=== PATIENT | male | born 1935 | race Caucasian/White ===

== ENCOUNTER 2017-01-20 19:14 | Emergency (ER) | payer OTHER ==
[~2017-01-20] VITALS: Ht 170.2 cm; Wt 74.8 kg
[2017-01-20] MEDS ORDERED: SODIUM CHLORIDE 0.9% 1,000 ML IV ONE (19:32)
[2017-01-20] MEDS ORDERED: MORPHINE SULFATE 4 MG/ML SYRG IV ONE (19:45)
[2017-01-20] MEDS ORDERED: ONDANSETRON HCL 4 MG/2 ML VIAL IV ONE (19:45)
[2017-01-20 21:12] LABS: Albumin 3.5 g/dL (3.4-5.0); BUN/Creatinine Ratio 23.7; Basophils # (auto) 0.1 uL; Basophils % (auto) 0.6 % (0.0-2.0); Calcium 8.7 mg/dL (8.5-10.1); DEFINITIVE VIEW TRANSMISSION; Eosinophils # (auto) 0.1 uL; Eosinophils % (auto) 1.3 % (0.0-7.0); Hematocrit 30.2 % (41.0-53.0); Hemoglobin 10.1 g/dL (13.5-17.5); Lymphocytes # (auto) 2.3 uL; Lymphocytes % (auto) 21.3 % (10.0-50.0); Mean Corpuscular Hemoglobin 34.8 pg (28.0-32.0); Mean Corpuscular Hgb Conc. 33.5 g/dL (32.0-36.0); Mean Corpuscular Volume 103.9 fL (80.0-100.0); Mean Platelet Volume 7.9 fL (7.4-10.4); Monocytes # (auto) 0.9 uL; Monocytes % (auto) 8.5 % (0.0-12.0); Neutrophils # (auto) 7.5 uL; Neutrophils % (auto) 68.3 % (37.0-80.0); Platelet Count (auto) 442 10^3/uL (140-450); Potassium 3.9 mmol/L (3.5-5.1); Red Cell Distribution Width 16.4 % (11.6-16.0)
[2017-01-20 21:15] LABS: Bilirubin, Total 0.6 mg/dL (0.2-1.0)
[2017-01-20 22:27] LABS: Macrocytosis Slight; Platelet Estimate Adequate
[2017-01-21 00:35] VITALS: BP 130/91
== END 2017-01-21 01:05 | disposition home or self-care (01) ==
LOC: EDBD 19:14 → ER 19:29
DX: K57.30 Diverticulosis of large intestine without perforation or abscess without bleeding (principal); K40.90 Unilateral inguinal hernia, without obstruction or gangrene, not specified as recurrent; D64.9 Anemia, unspecified; I48.91 Unspecified atrial fibrillation; I10 Essential (primary) hypertension; E07.9 Disorder of thyroid, unspecified; Z98.890 Other specified postprocedural states
CPT/HCPCS: 36415; 74176; 80053; 83690; 85025; 96361; 96374; 96375; 99285; J2270; J2405; J7030

== ENCOUNTER → 2020-02-11 | Emergency (ER) | payer OTHER ==
[~2020-02-11] VITALS: Ht 170.2 cm; Wt 77.1 kg
[~2020-02-11] MED LIST: ACETAMINOPHEN 325 MG TAB PO ONE; MORPHINE SULF INJ 2 MG/ML SYRINGE 1ML IV ONE; ONDANSETRON HCL 4 MG/2 ML VIAL IV ONE; SODIUM CHLORIDE 0.9% 1,000 ML IV ONE
[2020-02-11 12:42] LABS: Basophils # (auto) 0.1 10 ^3/uL (0-0.2); Eosinophils # (auto) 0 10 ^3/uL (0-0.8); Eosinophils % (auto) 0.5 % (0.0-7.0); Lymphocytes # (auto) 0.5 10 ^3/uL (0.4-5.4); Monocytes # (auto) 0.5 10 ^3/uL (0-1.3); Neutrophils # (auto) 3.6 10 ^3/uL (1.6-8.6)
[2020-02-11 12:43] LABS: Basophils % (auto) 1.4 % (0.0-2.0); Hematocrit 23.3 % (41.0-53.0); Hemoglobin 8.1 g/dL (13.5-17.5); Lymphocytes % (auto) 10.9 % (10.0-50.0); Mean Corpuscular Hemoglobin 38.3 pg (28.0-32.0); Mean Corpuscular Volume 109.4 fL (80.0-100.0); Monocytes % (auto) 10.1 % (0.0-12.0); Neutrophils % (auto) 77.1 % (37.0-80.0); Platelet Count (auto) 230 10^3/uL (140-450); Red Blood Cells 2.13 10^6/uL (4.5-5.90); Red Cell Distribution Width 17.2 % (11.8-14.3); White Blood Cell 4.7 10^3/uL (4.4-10.8)
[2020-02-11 12:56] LABS: INR 3.44 (0.9-1.15); Partial Thromboplastin Time 38.1 sec (23.64-32.05)
[2020-02-11 13:04] LABS: Calcium 8.5 mg/dL (8.5-10.1); Potassium 3.7 mmol/L (3.5-5.1)
[2020-02-11 13:11] LABS: Albumin 3.5 g/dL (3.4-5.0); BUN/Creatinine Ratio 17.1; Bilirubin, Total 0.5 mg/dL (0.2-1.0); Magnesium 2.2 mg/dL (1.6-2.6); Total Protein 5.9 g/dL (6.4-8.2)
[2020-02-11 15:58] VITALS: BP 115/50
[2020-02-11 16:04] LABS: Urine Bacteria NONE SEEN /hpf (None Seen); Urine Blood Negative /uL (Negative); Urine Hyaline Cast FEW /lpf (0 - 2); Urine Mucus FEW (None Seen); Urine Specific Gravity 1.022 (1.001-1.035); Urine WBC 1 /hpf (0 - 3)
== END | disposition short-term general hospital (02) ==
LOC: EDUNIT# 11:39 → EDBD 11:40 → ER 11:40
DX: M48.061 Spinal stenosis, lumbar region without neurogenic claudication (principal); D50.9 Iron deficiency anemia, unspecified; R79.1 Abnormal coagulation profile; I10 Essential (primary) hypertension; S32.030D Wedge compression fracture of third lumbar vertebra, subsequent encounter for fracture with routine healing; X58.XXXD Exposure to other specified factors, subsequent encounter
CPT/HCPCS: 36415; 71045; 72131; 74176; 80053; 81001; 83735; 85025; 85610; 85730; 93005; 96374; 96375; 99285; J2270; J2405; J7030

== ENCOUNTER → 2020-09-14 | Emergency (ER) | payer OTHER ==
[~2020-09-14] VITALS: Ht 172.7 cm; Wt 65.8 kg
[~2020-09-14] MED LIST changes: -ACETAMINOPHEN 325 MG TAB PO ONE; -MORPHINE SULF INJ 2 MG/ML SYRINGE 1ML IV ONE; -ONDANSETRON HCL 4 MG/2 ML VIAL IV ONE
[2020-09-14 13:52] LABS: Hemoglobin 9.2 g/dL (13.5-17.5); Mean Corpuscular Volume 106.4 fL (80.0-100.0)
[2020-09-14 13:54] LABS: Mean Corpuscular Hemoglobin 36.2 pg (28.0-32.0); Platelet Count (auto) 350 10^3/uL (140-450); Red Blood Cells 2.53 10^6/uL (4.5-5.90); Red Cell Distribution Width 17.3 % (11.8-14.3); White Blood Cell 5.9 10^3/uL (4.4-10.8)
[2020-09-14 14:00] VITALS: BP 127/69
[2020-09-14 14:01] LABS: Blast Cells 0; Metamyelocytes % 0; Myelocytes % 0; Promyelocytes % 0; Reactive Lymphocytes 0
[2020-09-14 14:17] LABS: Albumin 3.6 g/dL (3.4-5.0); Anion Gap 5 (5-15); Blood Urea Nitrogen 16 mg/dL (7-18); Calcium 8.2 mg/dL (8.5-10.1); Carbon Dioxide 26 mmol/L (21-32); Chloride 107 mmol/L (98-107); Glucose 105 mg/dL (74-106); Sodium 138 mmol/L (136-145)
[2020-09-14 14:25] LABS: Alanine Aminotransferase 14 U/L (16-61); Alkaline Phosphatase 71 U/L (45-117); Aspartate Aminotransferase 8 U/L (15-37); Bilirubin, Total 1.5 mg/dL (0.2-1.0); GFR African American 105 mL/min; GFR Non-African American 87 mL/min; Total Protein 5.9 g/dL (6.4-8.2)
[2020-09-14 14:43] LABS: Band Neutrophils % (manual) 2; Basophils % (manual) 1 (0.0-2.0); Eosinophils % (manual) 1 (0-7); Lymphocytes % (manual) 13 (10.0-50.0); Monocytes % (manual) 10 (0-12)
[2020-09-14 16:46] LABS: Urine Bacteria FEW /hpf (None Seen); Urine Blood TRACE /uL (Negative); Urine Mucus FEW (None Seen); Urine Specific Gravity 1.019 (1.001-1.035); Urine WBC 694 /hpf (0 - 3); Urine WBC Clumps PRESENT /hpf (None Seen)
== END | disposition home or self-care (01) ==
LOC: EDUNIT# 12:26 → ER 12:40 → EDBD 12:40
DX: K52.9 Noninfective gastroenteritis and colitis, unspecified (principal); E86.0 Dehydration; N39.0 Urinary tract infection, site not specified; I10 Essential (primary) hypertension
CPT/HCPCS: 36415; 71045; 74176; 80053; 81001; 84484; 85007; 85027; 96360; 96361; 99285; J7030

== ENCOUNTER 2022-08-06 11:39 | Emergency (ER) | payer OTHER ==
[~2022-08-06] VITALS: Ht 162.6 cm; Wt 75.0 kg
[2022-08-06 23:31] VITALS: BP 136/60
== END 2022-08-06 22:04 | disposition short-term general hospital (02) ==
LOC: ER 11:39 → EDBD 11:39 → ER 22:04
DX: M25.551 Pain in right hip (principal); I10 Essential (primary) hypertension; I48.91 Unspecified atrial fibrillation; E03.9 Hypothyroidism, unspecified; Z20.822 Contact with and (suspected) exposure to COVID-19
CPT/HCPCS: 36415; 72131; 72192; 73502; 93005

== ENCOUNTER 2022-10-25 14:06 | Inpatient (IN) | payer OTHER ==
[~2022-10-25] VITALS: Ht 160 cm; Wt 69.3 kg
[2022-10-25] MEDS ORDERED: SODIUM CHLORIDE 0.9% 500 ML IV ONE (16:45)
[2022-10-25] MEDS ORDERED: METOCLOPRAMIDE HCL 5MG/ml INJ 2ml VIAL IV ONE (16:45)
[2022-10-25] MEDS ORDERED: DexAMETHasone SOD PHOS 10MG/1ML VIAL INJ IV ONE (16:45)
[2022-10-25] MEDS ORDERED: HYDROmorphone HCL 2 MG/ML VL/or syr IV ONE (16:45)
[2022-10-25] MEDS ORDERED: METOCLOPRAMIDE HCL 5MG/ml INJ 2ml VIAL IM ONE (18:00)
[2022-10-25] MEDS ORDERED: HYDROcodone-ACET 7.5/325MG TAB PO ONE (18:00)
[2022-10-25] MEDS ORDERED: DexAMETHasone SOD PHOS 4 MG/1ML SDV INJ IM ONE (18:00)
[2022-10-25 21:00] LABS: Hemoglobin 8.2 g/dL (13.5-17.5); White Blood Cell 11.4 10^3/uL (4.4-10.8)
[2022-10-25 21:03] LABS: Hematocrit 24.8 % (41.0-53.0); Mean Corpuscular Hemoglobin 37.1 pg (28.0-32.0); Mean Corpuscular Hgb Conc. 33.1 g/dL (32.0-36.0); Mean Corpuscular Volume 112.1 fL (80.0-100.0); Red Blood Cells 2.21 10^6/uL (4.5-5.90)
[2022-10-25 21:04] LABS: Red Cell Distribution Width 23.9 % (11.8-14.3)
[2022-10-25 21:06] LABS: Basophils % (manual) 0 (0.0-2.0); Blast Cells 0; Eosinophils % (manual) 0 (0-7); Metamyelocytes % 0; Myelocytes % 0; Promyelocytes % 0; Reactive Lymphocytes 0
[2022-10-25 21:47] LABS: Albumin 3.7 g/dL (3.4-5.0); BUN/Creatinine Ratio 18.2; Calcium 8.6 mg/dL (8.5-10.1); Potassium 4.8 mmol/L (3.5-5.1)
[2022-10-25 21:49] LABS: Bilirubin, Total 1.8 mg/dL (0.2-1.0); Total Protein 6.2 g/dL (6.4-8.2)
[2022-10-25 22:12] LABS: Band Neutrophils % (manual) 17; Lymphocytes % (manual) 13 (10.0-50.0); Monocytes % (manual) 9 (0-12)
[2022-10-25] MEDS ORDERED: DexAMETHasone SOD PHOS 4 MG/1ML SDV INJ ONE (23:04)
[2022-10-26 04:47] LABS: Urine Bacteria MANY /hpf (None Seen); Urine Blood Negative /uL (Negative); Urine Mucus FEW (None Seen); Urine Specific Gravity 1.021 (1.001-1.035); Urine WBC 147 /hpf (0 - 3); Urine WBC Clumps PRESENT /hpf (None Seen)
[2022-10-26] MEDS ORDERED: MORPHINE SULFATE INJ 2 MG/ml SYRG IV PRN (06:45)
[2022-10-26] MEDS ORDERED: ACETAMINOPHEN 325 MG TAB PO PRN (06:45)
[2022-10-26] MEDS ORDERED: TEMAZEPAM 15 MG CAP PO PRN (06:45)
[2022-10-26] MEDS ORDERED: ONDANSETRON HCL 4 MG/2 ML VIAL IV PRN (06:45)
[2022-10-26] MEDS: OXYCODONE W/ ACETAMINOPHEN 5/325MG TABLET PO PRN ×2 (08:45→20:33)
[2022-10-26] MEDS: METOPROLOL SUCCINATE XL 50 MG TAB PO SCH (10:00)
[2022-10-26] MEDS: FUROSEMIDE 20 MG TAB PO SCH (10:00)
[2022-10-26] MEDS: ENOXAPARIN SOD 40 MG/0.4 ML SYRINGE SC SCH (10:24)
[2022-10-26] MEDS: TAMSULOSIN HYDROCHLORIDE 0.4 MG CAP PO SCH (18:27)
[2022-10-27 06:18] LABS: Calcium 8.3 mg/dL (8.5-10.1); Potassium 4.1 mmol/L (3.5-5.1)
[2022-10-27 06:21] LABS: BUN/Creatinine Ratio 22.8
[2022-10-27] MEDS ORDERED: cefTRIAXone 1GM/50ML D5W 50 ML IV SCH (09:00)
[2022-10-27 09:30] VITALS: BP 118/62
[2022-10-27] MEDS: METOPROLOL SUCCINATE XL 50 MG TAB PO SCH (10:13)
[2022-10-27] MEDS: ENOXAPARIN SOD 40 MG/0.4 ML SYRINGE SC SCH (10:13)
[2022-10-27] MEDS: FUROSEMIDE 20 MG TAB PO SCH (10:14)
[2022-10-27 12:35] VITALS: BP 113/54
[2022-10-27 17:00] VITALS: BP 119/47
[2022-10-27 17:13] VITALS: BP 118/62
[2022-10-27] MEDS ORDERED: TAMS0.4C36 PO (17:33)
[2022-10-27] MEDS ORDERED: FUR20T PO (17:33)
[2022-10-27] MEDS ORDERED: DABI150C5 PO (17:33)
[2022-10-27] MEDS ORDERED: METO25TA5 PO (17:33)
[2022-10-27] MEDS ORDERED: FIN5T PO (17:33)
[2022-10-27] MEDS: TAMSULOSIN HYDROCHLORIDE 0.4 MG CAP PO SCH (17:51)
[2022-10-27] MEDS: OXYCODONE W/ ACETAMINOPHEN 5/325MG TABLET PO PRN (21:07)
[2022-10-27 22:00] VITALS: BP 115/49
[2022-10-28 01:07] VITALS: BP 115/49
== END 2022-10-28 02:41 | disposition short-term general hospital (02) | DRG 552 ==
LOC: ER 14:06 → EDBD 14:06 → OVERFLOW 10-26 06:50 → WEST WING 10-27 08:30
PROVIDERS: ADMIT Nurse Practitioner; ATTEND Internal Medicine Pulmonary Disease
DX: M54.16 Radiculopathy, lumbar region (principal); N39.0 Urinary tract infection, site not specified; G89.29 Other chronic pain; I10 Essential (primary) hypertension; I48.91 Unspecified atrial fibrillation; N40.0 Benign prostatic hyperplasia without lower urinary tract symptoms; Z96.641 Presence of right artificial hip joint; M25.551 Pain in right hip; Z20.822 Contact with and (suspected) exposure to COVID-19
CPT/HCPCS: 36415; 72100; 72170; 73502; 74176; 80048; 80053; 81001; 84484; 85007; 85027; 87086; 87426; 87804; 96372; G0378; J0696; J1100

== ENCOUNTER 2024-01-19 15:35 | Emergency (ER) | payer OTHER ==
[~2024-01-19] VITALS: Ht 175.3 cm; Wt 75.0 kg
[~2024-01-19 15:35] MED LIST changes: +DABI150C5 PO; +FIN5T PO; +FUR20T PO; +METO25TA5 PO; -SODIUM CHLORIDE 0.9% 1,000 ML IV ONE; +TAMS0.4C36 PO
[2024-01-19 20:30] VITALS: BP 111/51; PULSE 78; RESP 20; TEMP 98.2; O2SAT 98
[2024-01-19] MEDS: PANTOPRAZOLE 40 MG/10 ML VIAL INJ IV ONE (20:34)
[2024-01-19] MEDS: GLUCAGON EMERG KIT 1mg/1ml IV ONE (20:34)
[2024-01-19 20:54] LABS: Basophils # (auto) 0.2 10 ^3/uL (0-0.2); Eosinophils # (auto) 0.1 10 ^3/uL (0-0.8); Monocytes # (auto) 0.7 10 ^3/uL (0-1.3)
[2024-01-19 20:55] LABS: Basophils % (auto) 1.9 % (0.0-2.0); Eosinophils % (auto) 1.2 % (0.0-7.0); Hemoglobin 9.5 g/dL (13.5-17.5); Lymphocytes # (auto) 1.6 10 ^3/uL (0.4-5.4); Lymphocytes % (auto) 20.3 % (10.0-50.0); Mean Corpuscular Hemoglobin 35.2 pg (28.0-32.0); Mean Corpuscular Hgb Conc. 32.7 g/dL (32.0-36.0); Mean Corpuscular Volume 107.7 fL (80.0-100.0); Monocytes % (auto) 8.8 % (0.0-12.0); Neutrophils # (auto) 5.4 10 ^3/uL (1.6-8.6); Neutrophils % (auto) 67.8 % (37.0-80.0); Nucleated Red Blood Cells % 0.2 %; Red Blood Cells 2.69 10^6/uL (4.5-5.90); White Blood Cell 7.9 10^3/uL (4.4-10.8)
[2024-01-19 21:01] LABS: Chloride 107 mmol/L (98-107); Potassium 3.8 mmol/L (3.5-5.1); Sodium 142 mmol/L (136-145)
[2024-01-19 21:02] LABS: Anion Gap 6 (5-15); Carbon Dioxide 29 mmol/L (20-30)
[2024-01-19 21:03] LABS: Calcium 9.4 mg/dL (8.5-10.1)
[2024-01-19 21:08] LABS: BUN/Creatinine Ratio 19.3 (10.0-20.0); Blood Urea Nitrogen 17 mg/dL (9-23); Glucose 99 mg/dL (74-106)
[2024-01-19 21:13] LABS: Red Cell Distribution Width 30.2 % (11.8-14.3)
[2024-01-19 21:30] LABS: Anisocytosis Moderate; Macrocytosis Moderate; Platelet Estimate Increased
[2024-01-19 21:31] LABS: Ovalocytes FEW; Stomatocytes Few
[2024-01-19] MEDS ORDERED: PANT40TA2 PO (21:38)
== END 2024-01-19 21:48 | disposition home or self-care (01) ==
LOC: EDBD 15:35 → ER 15:35
DX: Z03.821 Encounter for observation for suspected ingested foreign body ruled out (principal); M54.2 Cervicalgia; I10 Essential (primary) hypertension; I48.91 Unspecified atrial fibrillation; E03.9 Hypothyroidism, unspecified; Z86.2 Personal history of diseases of the blood and blood-forming organs and certain disorders involving the immune mechanism; Z79.899 Other long term (current) drug therapy
CPT/HCPCS: 36415; 70490; 80048; 85025; 96374; 96375; 99285; C9113; J1610

== ENCOUNTER 2024-05-16 07:18 | Emergency (ER) | payer OTHER ==
[~2024-05-16] VITALS: Ht 170.2 cm; Wt 73.0 kg
[~2024-05-16 07:18] MED LIST changes: +PANT40TA2 PO
[2024-05-16 08:48] VITALS: BP 124/65; PULSE 102; RESP 18; TEMP 98.5; O2SAT 95
[2024-05-16] MEDS: HYDROcodone-ACET 5/325MG TAB PO ONE (09:09)
[2024-05-16 09:39] LABS: Basophils # (auto) 0.2 10 ^3/uL (0-0.2); Lymphocytes # (auto) 1.7 10 ^3/uL (0.4-5.4); Monocytes # (auto) 0.9 10 ^3/uL (0-1.3)
[2024-05-16 09:40] LABS: Basophils % (auto) 1.7 % (0.0-2.0); Eosinophils # (auto) 0 10 ^3/uL (0-0.8); Eosinophils % (auto) 0.4 % (0.0-7.0); Hematocrit 27.1 % (41.0-53.0); Lymphocytes % (auto) 15.8 % (10.0-50.0); Mean Corpuscular Hemoglobin 36.9 pg (28.0-32.0); Mean Corpuscular Hgb Conc. 33.1 g/dL (32.0-36.0); Mean Corpuscular Volume 111.5 fL (80.0-100.0); Monocytes % (auto) 8.2 % (0.0-12.0); Neutrophils # (auto) 8.1 10 ^3/uL (1.6-8.6); Neutrophils % (auto) 73.9 % (37.0-80.0); Nucleated Red Blood Cells % 0.2 %; Red Blood Cells 2.43 10^6/uL (4.5-5.90); Red Cell Distribution Width 30.1 % (11.8-14.3)
[2024-05-16 09:44] LABS: Chloride 107 mmol/L (98-107); Sodium 140 mmol/L (136-145)
[2024-05-16 09:45] LABS: Anion Gap 4 (5-15); Carbon Dioxide 29 mmol/L (20-30)
[2024-05-16 09:46] LABS: Calcium 9.6 mg/dL (8.5-10.1)
[2024-05-16 09:51] LABS: BUN/Creatinine Ratio 23.6 (10.0-20.0); Blood Urea Nitrogen 26 mg/dL (9-23); Glucose 100 mg/dL (74-106)
[2024-05-16 10:02] LABS: Anisocytosis Moderate; Macrocytosis Moderate; Platelet Estimate Increased
[2024-05-16 10:03] LABS: Ovalocytes FEW; Stomatocytes Few; Tear Drop Cells FEW
[2024-05-16 10:28] LABS: Urine Bacteria None Seen /hpf (None Seen)
[2024-05-16 10:54] LABS: Urine Blood Negative /uL (Negative); Urine Clarity Clear (Clear); Urine Color Yellow (Yellow); Urine Hyaline Cast FEW /lpf (0 - 2); Urine Protein, UAD Negative (Negative); Urine Specific Gravity 1.022 (1.001-1.035); Urine Urobilinogen Normal (Negative); Urine WBC 1 /hpf (0 - 3)
[2024-05-16] MEDS ORDERED: DICL1GEL59 EX (11:29)
== END 2024-05-16 11:58 | disposition home or self-care (01) ==
LOC: ER 07:18
DX: G89.29 Other chronic pain (principal); M54.50 Low back pain, unspecified; D53.9 Nutritional anemia, unspecified; I48.91 Unspecified atrial fibrillation; M19.90 Unspecified osteoarthritis, unspecified site; I10 Essential (primary) hypertension; E07.9 Disorder of thyroid, unspecified
CPT/HCPCS: 36415; 72100; 80048; 81001; 85025